=== PATIENT | female | born 1985 | race Caucasian/White ===

== ENCOUNTER 2022-12-19 11:19 | Emergency (ER) | payer OTHER ==
[~2022-12-19] VITALS: Ht 165.1 cm; Wt 73.6 kg
[2022-12-19 12:10] VITALS: BP 146/97; TEMP 97.4; O2SAT 100
[2022-12-19 12:15] LABS: HEMATOCRIT 45.3 % (36.0-47.0); HEMOGLOBIN 15.8 g/dl (12.0-15.5); MEAN CORPUSCULAR HEMOGLOBIN 33.4 pg (27.0-33.0); MEAN CORPUSCULAR HGB CONC 34.9 g/dl (32.0-36.5); MEAN CORPUSCULAR VOLUME 95.8 fl (80.0-96.0); PLATELET COUNT, AUTOMATED 373 10^3/uL (150-450); RED BLOOD COUNT 4.73 10^6/uL (4.00-5.40); WHITE BLOOD COUNT 7.5 10^3/uL (4.0-10.0)
[2022-12-19] MEDS ORDERED: AMOX875T2 (12:22)
[2022-12-19] MEDS ORDERED: ALBU8.5H (12:22)
[2022-12-19] MEDS ORDERED: ADV250INH INH (12:22)
[2022-12-19] MEDS ORDERED: OMEP40CA4 PO (12:22)
[2022-12-19 12:40] LABS: ETHYL ALCOHOL (ETHANOL) 0.093 % (0.000-0.010)
[2022-12-19 12:41] LABS: ACETAMINOPHEN LEVEL < 2.0 UG/ML (10.0-20.0); ALBUMIN 4.1 G/DL (3.2-5.2); ALKALINE PHOSPHATASE 70 U/L (46-116); ALT/SGPT 19 U/L (7.0-40); AST/SGOT 13 U/L (<34); BILIRUBIN,DIRECT 0.2 MG/DL (<0.4); BILIRUBIN,TOTAL 0.5 MG/DL (0.3-1.2); BLOOD UREA NITROGEN 11 MG/DL (9-23); CALCIUM LEVEL 9.1 MG/DL (8.5-10.1); CARBON DIOXIDE LEVEL 26 MMOL/L (20-31); CHLORIDE LEVEL 107 MMOL/L (98-107); CREATININE FOR GFR 0.81 MG/DL (0.55-1.30); GLOMERULAR FILTRATION RATE > 60.0 (>60); GLUCOSE, FASTING 84 MG/DL (60-100); SALICYLATE LEVEL < 3.0 MG/DL (<30); SODIUM LEVEL 141 MMOL/L (136-145); TOTAL PROTEIN 7.3 G/DL (5.7-8.2)
[2022-12-19 12:43] LABS: HCG, SERUM QUALITATIVE NEGATIVE (NEGATIVE)
[2022-12-19 12:45] LABS: THYROID STIMULATING HORMONE 1.134 uIU/ML (0.55-4.78)
[2022-12-19 12:51] LABS: AMPHETAMINES LEVEL URINE NEGATIVE (NEGATIVE); BARBITURATES URINE NEGATIVE (NEGATIVE); BENZODIAZEPINES URINE NEGATIVE (NEGATIVE); COCAINE METABOLITE URINE NEGATIVE (NEGATIVE); METHADONE URINE NEGATIVE (NEGATIVE); OPIATES URINE NEGATIVE (NEGATIVE); PHENCYCLIDINE URINE NEGATIVE (NEGATIVE)
[2022-12-19 12:53] LABS: CANNABINOIDS URINE POSITIVE (NEGATIVE)
== END 2022-12-19 15:18 | disposition home or self-care (01) ==
LOC: M ED 11:19
DX: F43.20 Adjustment disorder, unspecified (principal); F32.A Depression, unspecified; J45.909 Unspecified asthma, uncomplicated; K21.9 Gastro-esophageal reflux disease without esophagitis; F17.200 Nicotine dependence, unspecified, uncomplicated; F12.10 Cannabis abuse, uncomplicated; F10.10 Alcohol abuse, uncomplicated; Z91.09 Other allergy status, other than to drugs and biological substances; Z79.52 Long term (current) use of systemic steroids; Z79.2 Long term (current) use of antibiotics; Z79.899 Other long term (current) drug therapy

== ENCOUNTER → 2024-11-11 | Outpatient (REF) | payer OTHER ==
[~2024-11-11] MED LIST: ADVA1AER9 INH; ALBU8.5H; AMOX875T2; OMEP40CA4 PO
[2024-11-11 14:27] LABS: BASO # 0.0 10^3/uL (0.0-0.2); BASO % 0.6 % (0.0-1.0); EOS # 0.3 10^3/uL (0.0-0.5); EOS % 3.9 % (0.0-3.0); LYMPH # 1.7 10^3/uL (1.5-5.0); LYMPH % 24.4 % (24.0-44.0); MONO # 0.6 10^3/uL (0.0-0.8); MONO % 8.9 % (2.0-8.0); NEUTROPHILS # 4.4 10^3/uL (1.5-8.5); NEUTROPHILS % 61.6 % (36.0-66.0); PLATELET COUNT, AUTOMATED 370 10^3/uL (150-450)
[2024-11-15 17:57] LABS: BERMUDA GRASS IGE 4.16 kU/L (<0.10); BIRCH IGE 9.81 kU/L (<0.10); COMMON RAGWEED SHORT IGE 7.11 kU/L (<0.10); D001 IGE D PTERONYSSINUS 58.40 kU/L (<0.10); D002-IGE D FARINAE 61.60 kU/L (<0.10); E001-IGE CAT DANDER 1.33 kU/L (<0.10); E005-IGE DOG DANDER 1.17 kU/L (<0.10); ELM IGE 0.11 kU/L (<0.10); I006 IGE COCKROACH 0.33 kU/L (<0.10); IMMUNOGLOBULIN E FOR ALLERGENS 2116 kU/L (<OR=114); M006 IGE ALTERNIA ALTERNATA 1.36 kU/L (<0.10); M1-PENICILLIUM NOTATUM < 0.10 kU/L (<0.10); MOUSE URINE IGE < 0.10 kU/L (<0.10); MUGWORT IGE 0.13 kU/L (<0.10); OAK IGE 3.47 kU/L (<0.10); ROUGH PIGWEED IGE < 0.10 kU/L (<0.10); SHEEP SORREL IGE 0.12 kU/L (<0.10); T001-IGE MAPLE BOX ELDER 1.79 kU/L (<0.10); T006-IGE MOUNTAIN CEDAR < 0.10 kU/L (<0.10); T014 COTTONWOOD IGE 0.15 kU/L (<0.10); TIMOTHY GRASS IGE 11.80 kU/L (<0.10); WALNUT TREE IGE 0.13 kU/L (<0.10); WHITE ASH IGE < 0.10 kU/L (<0.10); WHITE MULBERRY IGE < 0.10 kU/L (<0.10)
[2024-11-16 08:36] LABS: E094-IgE Fel d 1 1.52 kU/L (<0.10); E101-IgE Can f 1 < 0.10 kU/L (<0.10); E102-IgE Can f 2 < 0.10 kU/L (<0.10); E226 IgE Can f 5 0.81 kU/L (<0.10); E228-IgE Fel d 4 < 0.10 kU/L (<0.10); E229 IGE CAN F 4 < 0.10 kU/L (<0.10); E230 IGE CAN F 6 < 0.10 kU/L (<0.10); E231 IGE FEL D 7 < 0.10 kU/L (<0.10)
== END ==
LOC: M LAB REF 13:06
PROVIDERS: ATTEND Physician Assistant
DX: J45.50 Severe persistent asthma, uncomplicated (principal)

== ENCOUNTER → 2025-01-17 | Outpatient (REF) | LOC: M LAB 13:00 | PROVIDERS: ATTEND Family Medicine | DX: Z00.00 Encounter for general adult medical examination without abnormal findings (principal) ==